=== PATIENT | female | born 1960 | race Caucasian/White ===

== ENCOUNTER 2023-10-09 08:25 | Inpatient (IN) | payer OTHER ==
[~2023-10-09] VITALS: Ht 172.7 cm; Wt 103.9 kg
[2023-10-09 08:25] VITALS: BP_SYST 128; PULSE 110; RESP 20; TEMP 98.3; O2SAT 97
[2023-10-09 09:06] LABS: BASOPHILS % (AUTO) 0.3 % (0.0-2.0); EOSINOPHILS % (AUTO) 0.1 % (0.0-4.0); HEMATOCRIT 40.3 % (36-48); HEMOGLOBIN 13.9 g/dL (12.0-16.0); LYMPHOCYTES # (AUTO) 1.3 K/uL (1.0-5.5); LYMPHOCYTES % (AUTO) 12.9 % (20.5-51.5); MEAN CORPUSCULAR HEMOGLOBIN 33 pg (27-31); MEAN CORPUSCULAR HGB CONC 35 % (32-36); MEAN CORPUSCULAR VOLUME 96 fL (79.0-98.0); MONOCYTES # (AUTO) 0.3 K/uL (0.0-1.0); MONOCYTES % (AUTO) 3.1 % (1.7-9.3); NEUTROPHILS # (AUTO) 8.7 K/uL (1.8-7.7); NEUTROPHILS % (AUTO) 83.6 % (40.0-70.0); PLATELET COUNT (AUTO) 227 K/uL (130-430); RED BLOOD CELL COUNT(AUTO) 4.18 MIL/uL (4.2-6.2); RED CELL DISTRIBUTION WIDTH 14.2 % (9.0-15.0); WHITE BLOOD COUNT (AUTO) 10.4 K/uL (4.8-10.8)
[2023-10-09 09:15] LABS: ANION GAP 14 (5-15); CALCIUM 9.3 mg/dL (8.4-11.0); CARBON DIOXIDE 25 mmol/L (23-29); CHLORIDE 102 mmol/L (98-107); CREATININE 0.57 mg/dL (0.55-1.30); GFR AFRICAN AMERICAN 138 mL/min (>90); GLUCOSE 122 mg/dL (74-106); POTASSIUM 3.9 mmol/L (3.5-5.1); SODIUM SERUM 141 mmol/L (136-145); UREA NITROGEN, BLOOD 26 mg/dL (8-21)
[2023-10-09] MEDS: LORazepam 2 MG/ML VIAL IVP ONE ×2 (09:15→13:02)
[2023-10-09 09:19] LABS: GFR NON AFRICAN-AMERICAN 114 mL/min (>90)
[2023-10-09] MEDS: OLANZapine 10 MG TAB.RAPDIS PO ONE (09:30)
[2023-10-09] MEDS: OLANZapine 5 MG TAB.RAPDIS PO ONE (09:35)
[2023-10-09 09:46] LABS: BILIRUBIN,URINE NEGATIVE (NEGATIVE); CLARITY/URINE CLEAR (CLEAR); COLOR,URINE YELLOW (YELLOW); GLUCOSE,URINE NEGATIVE (NEGATIVE); KETONES,URINE NEGATIVE (NEGATIVE); LEUKOCYTE ESTERASE ,URINE NEGATIVE (NEGATIVE); NITRITE, URINE NEGATIVE (NEGATIVE); PROTEIN URINE 1+ (NEGATIVE); UROBILINOGEN,URINE 0.2 (0.2-1.0)
[2023-10-09 09:51] LABS: BLOOD, URINE TRACE (NEGATIVE)
[2023-10-09 09:53] LABS: BACTERIA,URINE None Seen /HPF (None Seen); CALCIUM OXALATE CRYSTALS,UR None Seen /HPF (None Seen); CALCIUM PHOSPHATE CRYSTALS,UR None Seen /HPF (None Seen); COARSE GRANULAR CASTS,URINE None Seen /LPF (None Seen); FINE GRANULAR CASTS,URINE None Seen /LPF (None Seen); HYALINE CASTS, URINE None Seen /LPF (None Seen); MUCUS,URINE None Seen /LPF (None Seen); OTHER CASTS, URINE None Seen /LPF (None Seen); OTHER CRYSTALS,URINE None Seen /HPF (None Seen); RBC,URINE 0-3 /HPF (0-3); TRICHOMONAS,URINE None Seen /HPF (None Seen); TRIPLE PHOSPHATE CRYSTAL,UR None Seen /HPF (None Seen); URIC ACID CRYSTALS,URINE None Seen /HPF (None Seen); URINE AMORPHOUS PHOSPHATES None Seen /HPF (None Seen); URINE AMORPHOUS URATE None Seen /HPF (None Seen); WAXY CASTS,URINE None Seen /LPF (None Seen); WBC,URINE NONE SEEN /HPF (0-3); YEAST,URINE None Seen /HPF (None Seen)
[2023-10-09] MEDS: PANTOPRAZOLE SODIUM 40 MG/VIAL (PROTONIX) IVP ONE ×2 (09:59→10:30)
[2023-10-09 10:00] LABS: BARBITURATE, URINE NEGATIVE (NEG <=200); BENZODIAZEPINE, URINE NEGATIVE (NEG <=150); CANNABINOID, URINE NEGATIVE (NEG <=50); COCAINE, URINE NEGATIVE (NEG <=150); METHAMPHETAMINES SCREEN,URINE NEGATIVE (NEG <=500); OPIATE, URINE POSITIVE (NEG <=100); PHENCYCLIDINE SCREEN,URINE NEGATIVE (NEG <=25); URINE AMPHETAMINE NEGATIVE (NEG <=500); URINE METHADONE NEGATIVE (NEG <=200)
[2023-10-09 10:01] LABS: UR TRICYCLIC ANTIDEPRESSANTS POSITIVE (NEG <=300); URINE OXYCODONE SCREEN NEGATIVE (NEG <=100)
[2023-10-09] MEDS: ONDANSETRON HCL 4 MG/2 ML VIAL IVP ONE ×2 (10:30→13:02)
[2023-10-09] MEDS ORDERED: ONDANSETRON HCL 4 MG/2 ML VIAL ONE ×2 (10:32→12:51)
[2023-10-09] MEDS: NITROGLYCERIN 1 INCH (GM) OINT. TP ONE (10:52)
[2023-10-09] MEDS: ASPIRIN 81 MG TAB.CHEW PO ONE (11:03)
[2023-10-09 11:24] LABS: LIPASE 40 U/L (16-77)
[2023-10-09] MEDS ORDERED: QUET200T5 PO (11:52)
[2023-10-09] MEDS ORDERED: EZET10TA PO (11:52)
[2023-10-09] MEDS ORDERED: LAMO150T2 PO (11:52)
[2023-10-09] MEDS ORDERED: NOR10 PO (11:52)
[2023-10-09] MEDS ORDERED: CLON0.1T PO (11:52)
[2023-10-09] MEDS ORDERED: METF-379 PO (11:52)
[2023-10-09] MEDS ORDERED: ATOR-1 PO (11:52)
[2023-10-09] MEDS ORDERED: ASPI-524 PO (11:52)
[2023-10-09] MEDS ORDERED: CLOP75TA32 PO (11:52)
[2023-10-09] MEDS ORDERED: DULO60CA65 PO (11:52)
[2023-10-09] MEDS ORDERED: CLON0.5T2 PO (11:52)
[2023-10-09] MEDS ORDERED: COR3.125 PO (11:52)
[2023-10-09] MEDS ORDERED: LOSA1TAB43 PO (11:52)
[2023-10-09] MEDS ORDERED: METH500T PO (11:54)
[2023-10-09] MEDS ORDERED: NORT10CA5 PO (11:54)
[2023-10-09] MEDS: CLOPIDOGREL BISULFATE 75 MG TABLET PO ONE (13:21)
[2023-10-09] MEDS: CARVEDILOL 12.5 MG TABLET (COREG) PO ONE (13:22)
[2023-10-09] MEDS: chlordiazePOXIDE HCL 10 MG CAPSULE PO PRN (13:37)
[2023-10-09 14:30] VITALS: BP_SYST 140; PULSE 122; RESP 20; TEMP 98.3; O2SAT 96
[2023-10-09 16:01] VITALS: BP_SYST 140; PULSE 122; RESP 18; TEMP 98.3; O2SAT 96
[2023-10-09] MEDS: METOCLOPRAMIDE HCL 10 MG/2 ML VIAL IVP PRN (16:57)
[2023-10-09] MEDS: LORazepam 2 MG/ML VIAL IVP PRN (16:58)
[2023-10-09] MEDS: MAG-AL HYDROX/SIMETH 30 ML UDC PO PRN (18:05)
[2023-10-09 19:00] VITALS: BP_SYST 159; PULSE 117; RESP 22; TEMP 98.8; O2SAT 95; O2SAT 97
[2023-10-09 20:00] VITALS: BP_SYST 159; PULSE 117; RESP 22; TEMP 98.8; O2SAT 97
[2023-10-09] MEDS: CARVEDILOL 12.5 MG TABLET (COREG) PO SCH (20:16)
[2023-10-09] MEDS: ONDANSETRON HCL 4 MG/2 ML VIAL IVP PRN (20:16)
[2023-10-09] MEDS ORDERED: ACETAMINOPHEN 325 MG TABLET PO PRN (22:30)
[2023-10-09] MEDS ORDERED: NALOXONE HCL 0.4 MG/ML AMP (NARCAN) IVP PRN ×2 (22:30)
[2023-10-09 22:46] LABS: BILIRUBIN,URINE NEGATIVE (NEGATIVE); BLOOD, URINE 1+ (NEGATIVE); CLARITY/URINE SL CLOUDY (CLEAR); COLOR,URINE YELLOW (YELLOW); GLUCOSE,URINE NEGATIVE (NEGATIVE); KETONES,URINE NEGATIVE (NEGATIVE); LEUKOCYTE ESTERASE ,URINE 1+ (NEGATIVE); NITRITE, URINE NEGATIVE (NEGATIVE); PROTEIN URINE 1+ (NEGATIVE); UROBILINOGEN,URINE 0.2 (0.2-1.0)
[2023-10-09] MEDS: HYDROcodone/ACETAMIN 10-325 MG TAB PO PRN (22:58)
[2023-10-09 23:23] LABS: BACTERIA,URINE RARE /HPF (None Seen)
[2023-10-09] MEDS: hydrALAZINE HCL 20 MG/ML VIAL IVP PRN (23:49)
[2023-10-10] VITALS (7 sets, daily range): BP systolic 136–171; PULSE 73–97; RESP 15–18; TEMP 97.4–98; O2SAT 94–99
[2023-10-10] MEDS: BACLOFEN 10 MG TABLET PO SCH (08:04)
[2023-10-10] MEDS: ASPIRIN 81 MG TABLET(ECOTRIN) PO SCH (08:05)
[2023-10-10] MEDS: CLOPIDOGREL BISULFATE 75 MG TABLET PO SCH (08:05)
[2023-10-10] MEDS: ATORVASTATIN 20 MG TABLET PO SCH (08:06)
[2023-10-10] MEDS: HYDROcodone/ACETAMIN 5-325 MG TAB (NORCO/ VICODIN) PO PRN (08:06)
[2023-10-10] MEDS: THIAMINE HCL 100 MG TABLET PO ONE (11:46)
[2023-10-10] MEDS: MULTIVITS,CA,MINERALS/IRON/FA 1 TABLET PO ONE (11:46)
[2023-10-10] MEDS: FOLIC ACID 1 MG TABLET PO ONE (11:46)
[2023-10-10] MEDS: LORazepam 1 MG TABLET PO PRN (18:44)
[2023-10-11] VITALS (7 sets, daily range): BP systolic 132–159; PULSE 69–86; RESP 16–18; TEMP 97.1–98.9; O2SAT 93–100
[2023-10-11 06:36] LABS: BASOPHILS % (AUTO) 0.3 % (0.0-2.0); EOSINOPHILS # (AUTO) 0.2 K/uL (0.0-0.4); EOSINOPHILS % (AUTO) 2.3 % (0.0-4.0); HEMATOCRIT 37.2 % (36-48); HEMOGLOBIN 13.1 g/dL (12.0-16.0); LYMPHOCYTES # (AUTO) 1.7 K/uL (1.0-5.5); MEAN CORPUSCULAR HEMOGLOBIN 34 pg (27-31); MEAN CORPUSCULAR HGB CONC 35 % (32-36); MEAN CORPUSCULAR VOLUME 96 fL (79.0-98.0); MONOCYTES # (AUTO) 0.5 K/uL (0.0-1.0); NEUTROPHILS # (AUTO) 4.5 K/uL (1.8-7.7); NEUTROPHILS % (AUTO) 65.4 % (40.0-70.0); PLATELET COUNT (AUTO) 162 K/uL (130-430); RED BLOOD CELL COUNT(AUTO) 3.87 MIL/uL (4.2-6.2); RED CELL DISTRIBUTION WIDTH 14.8 % (9.0-15.0); WHITE BLOOD COUNT (AUTO) 6.8 K/uL (4.8-10.8)
[2023-10-11 07:12] LABS: CALCIUM 9.1 mg/dL (8.4-11.0); CREATININE 0.57 mg/dL (0.55-1.30); POTASSIUM 3.3 mmol/L (3.5-5.1)
[2023-10-11] MEDS: MULTIVITS,CA,MINERALS/IRON/FA 1 TABLET PO SCH (10:27)
[2023-10-11] MEDS: THIAMINE HCL 100 MG TABLET PO SCH (10:27)
[2023-10-11] MEDS: FOLIC ACID 1 MG TABLET PO SCH (10:28)
[2023-10-12] VITALS (7 sets, daily range): BP systolic 130–155; PULSE 68–97; RESP 14–20; TEMP 96.9–99.1; O2SAT 94–97
[2023-10-12 05:57] LABS: BASOPHILS % (AUTO) 0.2 % (0.0-2.0); EOSINOPHILS # (AUTO) 0.2 K/uL (0.0-0.4); EOSINOPHILS % (AUTO) 3.2 % (0.0-4.0); HEMATOCRIT 35.1 % (36-48); LYMPHOCYTES # (AUTO) 1.6 K/uL (1.0-5.5); LYMPHOCYTES % (AUTO) 25.4 % (20.5-51.5); MEAN CORPUSCULAR HEMOGLOBIN 33 pg (27-31); MEAN CORPUSCULAR HGB CONC 34 % (32-36); MEAN CORPUSCULAR VOLUME 96 fL (79.0-98.0); MONOCYTES # (AUTO) 0.4 K/uL (0.0-1.0); MONOCYTES % (AUTO) 6.4 % (1.7-9.3); NEUTROPHILS % (AUTO) 64.8 % (40.0-70.0); PLATELET COUNT (AUTO) 137 K/uL (130-430); RED BLOOD CELL COUNT(AUTO) 3.65 MIL/uL (4.2-6.2); RED CELL DISTRIBUTION WIDTH 14.3 % (9.0-15.0); WHITE BLOOD COUNT (AUTO) 6.2 K/uL (4.8-10.8)
[2023-10-12 06:36] LABS: ALBUMIN 2.9 g/dL (3.4-4.8); CALCIUM 8.9 mg/dL (8.4-11.0); CREATININE 0.59 mg/dL (0.55-1.30); POTASSIUM 3.3 mmol/L (3.5-5.1); TOTAL BILIRUBIN 1.2 mg/dL (0.0-1.0); TOTAL PROTEIN, SERUM 6.4 g/dL (6.4-8.3)
[2023-10-12] MEDS: NYSTATIN 30 GM TOPICAL CREAM TP ONE (12:35)
[2023-10-12] MEDS: cloNIDine HCL 0.1 MG TABLET PO SCH (20:28)
[2023-10-12] MEDS: LamoTRIgine 100 MG TABLET PO SCH (20:29)
[2023-10-12] MEDS: EZETIMIBE 10 MG TABLET PO SCH (20:30)
[2023-10-12] MEDS ORDERED: methocarbamoL 500 MG TABLET PO PRN (21:00)
[2023-10-12] MEDS: QUEtiapine FUMARATE 200 MG TAB.SR.24H PO SCH (21:00)
[2023-10-12] MEDS: NYSTATIN 30 GM TOPICAL CREAM TP SCH (21:00)
[2023-10-12] MEDS ORDERED: CARVEDILOL 3.125 MG TABLET (COREG) PO SCH (21:00)
[2023-10-13] VITALS: BP_SYST 122; PULSE 77; RESP 18; TEMP 97.1; O2SAT 96
[2023-10-13 04:00] VITALS: RESP 18
[2023-10-13 06:33] LABS: BASOPHILS % (AUTO) 0.1 % (0.0-2.0); EOSINOPHILS # (AUTO) 0.2 K/uL (0.0-0.4); EOSINOPHILS % (AUTO) 2.8 % (0.0-4.0); HEMATOCRIT 36.5 % (36-48); HEMOGLOBIN 12.4 g/dL (12.0-16.0); LYMPHOCYTES # (AUTO) 1.5 K/uL (1.0-5.5); LYMPHOCYTES % (AUTO) 21.6 % (20.5-51.5); MEAN CORPUSCULAR HEMOGLOBIN 33 pg (27-31); MEAN CORPUSCULAR HGB CONC 34 % (32-36); MEAN CORPUSCULAR VOLUME 97 fL (79.0-98.0); MONOCYTES # (AUTO) 0.7 K/uL (0.0-1.0); MONOCYTES % (AUTO) 9.8 % (1.7-9.3); NEUTROPHILS # (AUTO) 4.7 K/uL (1.8-7.7); NEUTROPHILS % (AUTO) 65.7 % (40.0-70.0); PLATELET COUNT (AUTO) 133 K/uL (130-430); RED BLOOD CELL COUNT(AUTO) 3.76 MIL/uL (4.2-6.2); RED CELL DISTRIBUTION WIDTH 14.6 % (9.0-15.0); WHITE BLOOD COUNT (AUTO) 7.2 K/uL (4.8-10.8)
[2023-10-13 06:50] LABS: CREATININE 0.6 mg/dL (0.55-1.30); POTASSIUM 4.3 mmol/L (3.5-5.1)
[2023-10-13 08:28] VITALS: O2SAT 98
[2023-10-13 08:35] VITALS: BP_SYST 144; PULSE 74; RESP 16; TEMP 97.6; O2SAT 98
[2023-10-13] MEDS ORDERED: ASPIRIN 81 MG TAB.CHEW PO SCH (09:00)
[2023-10-13] MEDS ORDERED: HYDROCHLOROTHIAZIDE 12.5 MG CAPSULE (HCTZ) PO SCH (09:00)
[2023-10-13] MEDS ORDERED: clonazePAM 0.5 MG TABLET PO PRN (09:00)
[2023-10-13] MEDS ORDERED: CLOPIDOGREL BISULFATE 75 MG TABLET PO SCH (09:00)
[2023-10-13] MEDS ORDERED: LOSARTAN POTASSIUM 50 MG TABLET (COZAAR) PO SCH (09:00)
[2023-10-13] MEDS ORDERED: amLODIPine BESYLATE 10 MG TABLET PO SCH (09:00)
[2023-10-13] MEDS ORDERED: NON-FORMULARY MEDICATION (Losartan/Hctz* (Losartan-Hctz 100-12.5 Mg Tab*) 1 TAB) PO SCH (09:00)
[2023-10-13] MEDS: DULoxetine HCL 30 MG CAPSULE.DR (CYMBALTA) PO SCH (10:19)
[2023-10-13] MEDS: metFORMIN HCL 500 MG TABLET PO SCH (10:19)
[2023-10-13] MEDS: NORTRIPTYLINE HCL 10 MG CAPSULE PO SCH (10:22)
[2023-10-13] MEDS: CARVEDILOL 25 MG TABLET (COREG) PO ONE (10:54)
[2023-10-13] MEDS: LOSARTAN POTASSIUM 50 MG TABLET (COZAAR) PO ONE (10:55)
[2023-10-13 12:26] VITALS: BP_SYST 143; PULSE 76; RESP 18; TEMP 98; O2SAT 99
[2023-10-13 16:00] VITALS: BP_SYST 138; PULSE 72; RESP 16; TEMP 97.8; O2SAT 97
[2023-10-13] MEDS ORDERED: CARVEDILOL 25 MG TABLET (COREG) PO SCH (21:00)
[2023-10-13] MEDS ORDERED: ATORVASTATIN 20 MG TABLET PO SCH (21:00)
[2023-10-14] MEDS ORDERED: LOSARTAN POTASSIUM 50 MG TABLET (COZAAR) PO SCH (09:00)
== END 2023-10-13 19:40 | disposition home health service (06) | DRG 305 ==
LOC: SED 08:25 → STU 10:35 → SMU 14:18 → STU 20:13 → SMU 10-12 16:04
PROVIDERS: ADMIT Preventive Medicine Preventive Medicine/Occupational Environmental Medicine; ATTEND Preventive Medicine Preventive Medicine/Occupational Environmental Medicine
DX: I16.0 Hypertensive urgency (principal); F10.939 Alcohol use, unspecified with withdrawal, unspecified; E44.0 Moderate protein-calorie malnutrition; E87.6 Hypokalemia; F41.9 Anxiety disorder, unspecified; F32.A Depression, unspecified; M79.7 Fibromyalgia; E78.5 Hyperlipidemia, unspecified; G89.4 Chronic pain syndrome; I10 Essential (primary) hypertension; K21.9 Gastro-esophageal reflux disease without esophagitis; I25.10 Atherosclerotic heart disease of native coronary artery without angina pectoris; I25.2 Old myocardial infarction; Z98.61 Coronary angioplasty status; Z79.82 Long term (current) use of aspirin; Z79.899 Other long term (current) drug therapy; Z68.34 Body mass index [BMI] 34.0-34.9, adult
CPT/HCPCS: 36415; 70450-TC; 71045; 72125-TC; 72170-TC; 80048; 80053; 80307; 81000; 81001; 81015; 83690; 83880; 84484; 85025; 93005; 96374; 96375; 96376; 97110-GP; 97116-GP; 97530-GP; 99285; C9113; G0378; G0482; J0360; J2060; J2405; J2765